=== PATIENT | female | born 1955 | race Caucasian/White ===

== ENCOUNTER 2025-06-13 02:09 | Emergency (ER) | payer BC, MEDICAID ==
[~2025-06-13] VITALS: Ht 152.4 cm; Wt 57.0 kg
[2025-06-13 02:48] VITALS: O2SAT 98
[2025-06-13] MEDS ORDERED: HYDR12.54 MT (03:25)
[2025-06-13] MEDS ORDERED: FINE10TA (03:25)
[2025-06-13] MEDS ORDERED: LABE100T9 MT (03:26)
[2025-06-13] MEDS ORDERED: ATOR10TA69 MT (03:27)
[2025-06-13] MEDS ORDERED: OMEP40CA20 PO (03:32)
[2025-06-13] MEDS ORDERED: ASPI-1497 MT (03:33)
[2025-06-13 03:50] LABS: BASOPHILS % 0.4 % (0.0-2.0); EOSINOPHILS % 2.2 % (0.0-5.0); HEMATOCRIT. 43.8 % (36.0-48.0); HEMOGLOBIN. 14.1 g/dL (12.0-16.0); LYMPHOCYTES % 28.1 % (20.0-50.0); MEAN PLATELET VOLUME 9.6 fl (7.4-10.4); MONOCYTES % 11.0 % (2.0-8.0); NEUTROPHILS % 58.3 % (40.0-76.0); PLATELET 231 x1000/uL (130-400); RED BLOOD CELL COUNT 4.93 mill/uL (4.2-5.4); RED CELL DISTRIBUTION WIDTH 14.5 % (11.6-14.6)
[2025-06-13 04:02] LABS: CREATININE 1.7 mg/dL (0.6-1.0); UREA NITROGEN BLOOD 32.0 mg/dL (9-23)
[2025-06-13 04:35] LABS: CLARITY URINE CLEAR (CLEAR); COLOR URINE YELLOW (YELLOW); GLUCOSE URINE 3+ (NEGATIVE); KETONES URINE NEGATIVE (NEGATIVE); LEUKOCYTE ESTERASE URINE NEGATIVE (NEGATIVE); NITRITE URINE NEGATIVE (NEGATIVE); OCCULT BLOOD URINE NEGATIVE (NEGATIVE); PH URINE 5.5 (4.5-8.0); PROTEIN URINE NEGATIVE (NEGATIVE); SPECIFIC GRAVITY URINE 1.028 (1.005-1.030); UROBILINOGEN URINE 0.2 E.U./dL (0.2-1.0)
[2025-06-13 05:04] VITALS: BP 100/54; PULSE 83; RESP 14; TEMP 36.6; O2SAT 100
[2025-06-13 05:49] LABS: SQUAMOUS EPITHELIAL CELL URINE FEW /lpf (RARE/1+)
[2025-06-13 05:50] LABS: BACTERIA URINE NONE SEEN; RBC URINE 0-2 /hpf (0-2); WBC URINE 0-2 /hpf (0-2)
== END 2025-06-13 05:05 | disposition home or self-care (01) ==
LOC: ER 02:09
DX: T38.3X1A Poisoning by insulin and oral hypoglycemic [antidiabetic] drugs, accidental (unintentional), initial encounter (principal); E11.9 Type 2 diabetes mellitus without complications; E78.00 Pure hypercholesterolemia, unspecified; I10 Essential (primary) hypertension; Z79.4 Long term (current) use of insulin; Z79.82 Long term (current) use of aspirin; Z79.899 Other long term (current) drug therapy; Z96.659 Presence of unspecified artificial knee joint; Z98.890 Other specified postprocedural states; Y92.89 Other specified places as the place of occurrence of the external cause
CPT/HCPCS: 36415; 80048; 81003; 82010; 82962; 85025; 99283